=== PATIENT | female | born 1960 | race Two or more races ===

== ENCOUNTER 2022-08-04 22:04 | Inpatient (IN) | payer OTHER ==
[~2022-08-04] VITALS: Ht 160 cm; Wt 66.7 kg
--- NOTE | 2022-08-04 22:26 | NUR ---
PTE ALERTA Y ORIENTADA X3 REFIERE TENER DOLOR ABDOMINAL EN PARTE BAJA DEL ABDOMEN QUE EMPEZO ESTA MANANA Y SE A INTENCIFICADO JAMAL EL CHAPIN.
--- NOTE | 2022-08-04 23:07 | NUR ---
SE EDUCA A PTE SOBRE TX MEDICO ESTA REFIERE ENTENDER. SE ARIANNA MUESTRAS DE LABORATORIO UTILIZANDO MEDIDAS ASEPTICAS. SE COLOCA H/L A PTE Y SE NOTIFICA ESTUDIO DE CT PENDIENTE A REALIZAR.
--- NOTE | 2022-08-05 07:07 | NUR ---
SE RECIBE PTE ALERTA Y ORIENTADA EN VERITO BAJA CON BARANDAS ELEVADAS POR SEGURIDAD. SE OBSERVA CON BUEN PATRON RESPIRATORIO. RECIBIENDO IV FLUIDS. PATENTE. AREA DE VENOPUNCION ROSA MARIA DE EDEMA Y ERITEMA.PEND CONS DR. JAQUEZ. SE MANTIENE BAJO OBSERVACION POR CAMBIOS
== END 2022-08-09 22:11 | disposition home or self-care (01) | DRG 392 ==
LOC: ER 22:04 → SEC-K 08-05 15:08 → MEDI 08-05 15:08
PROVIDERS: ADMIT Internal Medicine; ATTEND Internal Medicine
PROC: BW21YZZ Computerized Tomography (CT Scan) of Abdomen and Pelvis using Other Contrast (ICD-10-PCS; principal; 2022-08-08)
DX: K57.20 Diverticulitis of large intestine with perforation and abscess without bleeding (principal); K52.89 Other specified noninfective gastroenteritis and colitis; K66.8 Other specified disorders of peritoneum; Z20.822 Contact with and (suspected) exposure to COVID-19
CPT/HCPCS: 74175

== ENCOUNTER 2023-04-13 17:48 | Inpatient (IN) | payer OTHER ==
[~2023-04-13] VITALS: Ht 160 cm; Wt 57.6 kg
== END 2023-05-01 20:31 | disposition home or self-care (01) | DRG 330 ==
LOC: ER 17:48 → MEDI 04-14 20:46 → SURG 04-24 19:15
PROVIDERS: Colon & Rectal Surgery; Emergency Medicine; Student in an Organized Health Care Education/Training Program; Surgery; ADMIT Specialist; ATTEND Specialist
PROC: BW21YZZ Computerized Tomography (CT Scan) of Abdomen and Pelvis using Other Contrast (ICD-10-PCS; 2023-04-13)
PROC: 0W9F3ZZ Drainage of Abdominal Wall, Percutaneous Approach (ICD-10-PCS; 2023-04-15)
PROC: 02HV33Z Insertion of Infusion Device into Superior Vena Cava, Percutaneous Approach (ICD-10-PCS; 2023-04-16)
PROC: 3E0436Z Introduction of Nutritional Substance into Central Vein, Percutaneous Approach (ICD-10-PCS; 2023-04-16)
PROC: 30233N1 Transfusion of Nonautologous Red Blood Cells into Peripheral Vein, Percutaneous Approach (ICD-10-PCS; 2023-04-16)
PROC: 0DJD8ZZ Inspection of Lower Intestinal Tract, Via Natural or Artificial Opening Endoscopic (ICD-10-PCS; 2023-04-18)
PROC: 0D1L4Z4 Bypass Transverse Colon to Cutaneous, Percutaneous Endoscopic Approach (ICD-10-PCS; principal; 2023-04-24 11:30)
DX: N82.4 Other female intestinal-genital tract fistulae (principal); E46 Unspecified protein-calorie malnutrition; K57.20 Diverticulitis of large intestine with perforation and abscess without bleeding; L02.211 Cutaneous abscess of abdominal wall; K63.2 Fistula of intestine; K60.3 Anal fistula; Z68.22 Body mass index [BMI] 22.0-22.9, adult; D53.9 Nutritional anemia, unspecified; K66.0 Peritoneal adhesions (postprocedural) (postinfection); R53.1 Weakness; R68.89 Other general symptoms and signs; Z74.09 Other reduced mobility

== ENCOUNTER 2023-10-23 09:30 | Inpatient (IN) | payer OTHER ==
[~2023-10-23] VITALS: Ht 160 cm; Wt 54.4 kg
[2023-10-30] MEDS ORDERED: LIDOCAINE HCL 1%/Epi 20ML VIAL IJ ONE (12:44)
[2023-10-30] MEDS ORDERED: CEFTRIAXONE SODIUM 2,000 MG VIAL ONE (12:44)
[2023-10-30] MEDS ORDERED: METRONIDAZOLE/SODIUM CHLORIDE 500 MG/100 ML PIGGYBACK IV ONE ×3 (12:44→21:55)
[2023-10-30] MEDS ORDERED: LIDOCAINE HCL/EPINEPHRINE 10MG/ML 1% 50ML IJ ONE ×2 (13:11→14:30)
[2023-10-30] MEDS ORDERED: CHLORHEXIDINE GLUCONATE 120 ML BOTTLE TOP ONE ×2 (13:11→14:30)
[2023-10-30] MEDS ORDERED: POVIDONE-IODINE 118 ML BOTT TOP ONE ×2 (13:22→14:30)
[2023-10-30] MEDS ORDERED: BUPIVACAINE HCL/PF 0.5% 30ML ML ONE (13:53)
[2023-10-30] MEDS ORDERED: CEFTRIAXONE SODIUM 2,000 MG VIAL IV ONE (14:30)
[2023-10-30] MEDS ORDERED: BUPIVACAINE HCL/PF 0.25% 30ML VIAL InF ONE (14:30)
[2023-10-30] MEDS ORDERED: DEXTROSE 50 % IN WATER 0.5 G/ML DISP.SYRIN IV PRN (16:30)
[2023-10-30] MEDS ORDERED: 0.9 % SODIUM CHLORIDE 1,000 ML IV SCH (16:30)
[2023-10-30] MEDS ORDERED: MORPHINE SULFATE 4 MG/ML CARTRIDGE IV PRN (16:30)
[2023-10-30] MEDS ORDERED: ONDANSETRON HCL 2 MG/ML VIAL IV PRN (16:30)
[2023-10-30] MEDS ORDERED: OxyCODONE HCL 5 MG TABLET (ROXICODONE) PO PRN (16:30)
[2023-10-30] MEDS ORDERED: VISTASEAL DUAL APPICATOR 1 EACH APPL TOP ONE ×2 (16:51→17:45)
[2023-10-30] MEDS ORDERED: METRONIDAZOLE/SODIUM CHLORIDE 500 MG/100 ML PIGGYBACK IV SCH (17:00)
[2023-10-30] MEDS ORDERED: HYOSCYAMINE SULFATE 0.125 MG TAB.SUBL SL SCH (17:00)
[2023-10-30] MEDS ORDERED: GABAPENTIN 300 MG CAPSULE PO SCH (17:00)
[2023-10-30] MEDS ORDERED: THROMBIN,HU/FIBRINOGEN/CALCIUM 10 ML SYRINGE TOP ONE ×2 (17:24→17:45)
[2023-10-30] MEDS ORDERED: ACETAMINOPHEN 500 MG GEL..CAP PO SCH (20:00)
[2023-10-30] MEDS ORDERED: INSULIN LISPRO 1,000 UNIT/10 ML UNITS SUBCUTANEO SCH (21:00)
[2023-10-30] MEDS ORDERED: FAMOTIDINE/PF 20 MG/2 ML VIAL IV PUSH SCH (21:00)
[2023-10-30] MEDS ORDERED: FAMOTIDINE/PF 20 MG/2 ML VIAL ONE (21:56)
[2023-10-30] MEDS ORDERED: ONDANSETRON HCL 2 MG/ML VIAL ONE (22:02)
[2023-10-30 22:05] LABS: HEMATOCRIT 39.3 % (36.0-45.00); MEAN CELL VOLUME 89.4 fL (80.00-100.00); MEAN CORPUSCULAR HEMOGLOBIN 29.5 pg (27.00-32.0); PLATELET COUNT 334 K/uL (150-450); RED CELL DISTRIBUTION WIDTH 13.9 % (11.5-14.5)
[2023-10-30 22:22] LABS: ALBUMIN 3.3 gm/dL (3.4-5.0); CREATININE SERUM 0.57 mg/dL (0.55-1.02); GFR 106.45; MAGNESIUM 1.6 mg/dL (1.8-2.4); PHOSPHOROUS 3.5 mg/dL (2.5-4.9); POTASSIUM 4.61 mEq/L (3.5-5.1)
[2023-10-31] MEDS ORDERED: ENALAPRILAT DIHYDRATE 1.25 MG/ML VIAL IV PRN (06:00)
[2023-10-31 06:33] LABS: HEMATOCRIT 35.4 % (36.0-45.00); HEMOGLOBIN 11.7 g/dL (12.0-15.00); MEAN CELL VOLUME 89.4 fL (80.00-100.00); MEAN CORPUSCULAR HEMOGLOBIN 29.7 pg (27.00-32.0); MEAN CORPUSCULAR HGB CONC 33.2 g/dl (32.0-36.0); PLATELET COUNT 282 K/uL (150-450); RED BLOOD COUNT 3.96 M/uL (4.00-6.00); RED CELL DISTRIBUTION WIDTH 14.6 % (11.5-14.5)
[2023-10-31 06:59] LABS: ALBUMIN 2.6 gm/dL (3.4-5.0); CALCIUM 7.8 mg/dL (8.5-10.1); CREATININE SERUM 0.54 mg/dL (0.55-1.02); GFR 113.3; MAGNESIUM 1.5 mg/dL (1.8-2.4); PHOSPHOROUS 3.6 mg/dL (2.5-4.9); POTASSIUM 4.44 mEq/L (3.5-5.1)
[2023-10-31] MEDS ORDERED: MAGNESIUM SULFATE IN WATER 50 ML IV ONE (09:30)
[2023-10-31] MEDS ORDERED: ENOXAPARIN SODIUM 40 MG/0.4 ML SYRINGE SUBCUTANEO SCH (17:00)
[2023-11-01 07:41] LABS: CALCIUM 8.6 mg/dL (8.5-10.1); CREATININE SERUM 0.39 mg/dL (0.55-1.02); GFR 164.94; MAGNESIUM 2.3 mg/dL (1.8-2.4); PHOSPHOROUS 2.4 mg/dL (2.5-4.9); POTASSIUM 4.01 mEq/L (3.5-5.1)
[2023-11-01 07:54] LABS: HEMATOCRIT 34.4 % (36.0-45.00); HEMOGLOBIN 11.4 g/dL (12.0-15.00); MEAN CELL VOLUME 91.1 fL (80.00-100.00); MEAN CORPUSCULAR HEMOGLOBIN 30.2 pg (27.00-32.0); MEAN CORPUSCULAR HGB CONC 33.2 g/dl (32.0-36.0); PLATELET COUNT 297 K/uL (150-450); RED BLOOD COUNT 3.77 M/uL (4.00-6.00); RED CELL DISTRIBUTION WIDTH 14.5 % (11.5-14.5)
[2023-11-01] MEDS ORDERED: ENOXAPARIN SODIUM 40 MG/0.4 ML SYRINGE SUBCUTANEO SCH (09:00)
[2023-11-01] MEDS ORDERED: POTASSIUM PHOS,M-BASIC-D-BASIC 18 MM in 0.9 % SODIUM CHLORIDE 250 ML IV ONE (13:30)
[2023-11-01] MEDS ORDERED: MORPHINE SULFATE 4 MG/ML CARTRIDGE IV PRN (18:00)
[2023-11-03 06:42] LABS: HEMATOCRIT 32.5 % (36.0-45.00); HEMOGLOBIN 10.8 g/dL (12.0-15.00); MEAN CELL VOLUME 90.1 fL (80.00-100.00); MEAN CORPUSCULAR HEMOGLOBIN 29.9 pg (27.00-32.0); MEAN CORPUSCULAR HGB CONC 33.2 g/dl (32.0-36.0); PLATELET COUNT 297 K/uL (150-450); RED BLOOD COUNT 3.61 M/uL (4.00-6.00); RED CELL DISTRIBUTION WIDTH 14.7 % (11.5-14.5)
[2023-11-03 07:06] LABS: BILIRUBIN TOTAL 0.31 mg/dL (0.3-1.2); GFR 241.77; GLOBULINA 2.5 G/DL (2.4-3.5); POTASSIUM 4.01 mEq/L (3.5-5.1); TOTAL PROTEIN 4.5 gm/dL (6.4-8.2)
[2023-11-03 07:11] LABS: CREATININE SERUM 0.28 mg/dL (0.55-1.02)
[2023-11-03] MEDS ORDERED: INTESTINEX680 M1 PO (11:07)
[2023-11-03] MEDS ORDERED: HYOSCYAMINE0.125 M1 SL (11:08)
== END 2023-11-03 12:07 | disposition home or self-care (01) | DRG 330 ==
LOC: SURH 10-30 07:00 → O/R 10-30 10:09 → SURH 10-30 18:49
PROVIDERS: Internal Medicine; Internal Medicine Geriatric Medicine; Obstetrics & Gynecology Gynecologic Oncology; Urology; ADMIT Surgery; ATTEND Surgery
PROC: 0UQ Female Reproductive System, Repair (ICD-10-PCS; 2023-10-30)
PROC: 0UQG4ZZ Repair Vagina, Percutaneous Endoscopic Approach (ICD-10-PCS; 2023-10-30)
PROC: 0DJD8ZZ Inspection of Lower Intestinal Tract, Via Natural or Artificial Opening Endoscopic (ICD-10-PCS; 2023-10-30)
PROC: 0DQP4ZZ Repair Rectum, Percutaneous Endoscopic Approach (ICD-10-PCS; 2023-10-30)
PROC: 0UT94ZZ Resection of Uterus, Percutaneous Endoscopic Approach (ICD-10-PCS; 2023-10-30)
PROC: 0UT74ZZ Resection of Bilateral Fallopian Tubes, Percutaneous Endoscopic Approach (ICD-10-PCS; 2023-10-30)
PROC: 0UT24ZZ Resection of Bilateral Ovaries, Percutaneous Endoscopic Approach (ICD-10-PCS; 2023-10-30)
PROC: 0TN74ZZ Release Left Ureter, Percutaneous Endoscopic Approach (ICD-10-PCS; 2023-10-30)
PROC: 0TN64ZZ Release Right Ureter, Percutaneous Endoscopic Approach (ICD-10-PCS; 2023-10-30)
PROC: 0T788DZ Dilation of Bilateral Ureters with Intraluminal Device, Via Natural or Artificial Opening Endoscopic (ICD-10-PCS; 2023-10-30)
PROC: 0TQB4ZZ Repair Bladder, Percutaneous Endoscopic Approach (ICD-10-PCS; 2023-10-30)
PROC: 0DQ84ZZ Repair Small Intestine, Percutaneous Endoscopic Approach (ICD-10-PCS; principal; 2023-10-30 22:30)
PROC: 0DBP4ZZ Excision of Rectum, Percutaneous Endoscopic Approach (ICD-10-PCS; 2023-10-30 22:30)
PROC: 0DTN4ZZ Resection of Sigmoid Colon, Percutaneous Endoscopic Approach (ICD-10-PCS; 2023-10-30 22:30)
DX: K57.20 Diverticulitis of large intestine with perforation and abscess without bleeding (principal); K91.71 Accidental puncture and laceration of a digestive system organ or structure during a digestive system procedure; N99.72 Accidental puncture and laceration of a genitourinary system organ or structure during other procedure; N32.1 Vesicointestinal fistula; D25.1 Intramural leiomyoma of uterus; D25.2 Subserosal leiomyoma of uterus; N80.03 Adenomyosis of the uterus; N72 Inflammatory disease of cervix uteri; N83.311 Acquired atrophy of right ovary; N83.12 Corpus luteum cyst of left ovary; Z20.822 Contact with and (suspected) exposure to COVID-19

== ENCOUNTER 2024-03-16 11:15 | Inpatient (IN) | payer OTHER ==
[~2024-03-16] VITALS: Ht 160 cm; Wt 58.1 kg
[~2024-03-16 11:15] MED LIST: HYOSCYAMINE0.125 M1 SL; INTESTINEX680 M1 PO
[2024-03-16] MEDS ORDERED: FIORECET (12:56)
[2024-03-16] MEDS ORDERED: MOBIC7.5 MG PO (12:56)
[2024-03-22] MEDS ORDERED: CEFTRIAXONE SODIUM 2,000 MG VIAL ONE (13:49)
[2024-03-22] MEDS ORDERED: METRONIDAZOLE/SODIUM CHLORIDE 500 MG/100 ML PIGGYBACK IV ONE ×2 (13:50→16:48)
[2024-03-22] MEDS ORDERED: ONDANSETRON HCL 2 MG/ML VIAL IV PRN (15:30)
[2024-03-22] MEDS ORDERED: MORPHINE SULFATE 4 MG/ML CARTRIDGE IV PRN (15:30)
[2024-03-22] MEDS ORDERED: DEXTROSE 50 % IN WATER 0.5 G/ML DISP.SYRIN IV PRN (15:30)
[2024-03-22] MEDS ORDERED: 0.9 % SODIUM CHLORIDE 1,000 ML IV SCH (15:30)
[2024-03-22] MEDS ORDERED: OxyCODONE HCL 5 MG TABLET (ROXICODONE) PO PRN (15:30)
[2024-03-22] MEDS ORDERED: BUTALB-ACETAMI1 EAC2 (15:45)
[2024-03-22] MEDS ORDERED: MORPHINE SULFATE 4 MG/ML VIAL IV ONE ×2 (16:20→16:50)
[2024-03-22] MEDS ORDERED: POLYETHYLENE GLYCOL 3350 17 GM BLIST.PACK PO SCH (17:00)
[2024-03-22] MEDS ORDERED: GABAPENTIN 300 MG CAPSULE PO SCH (17:00)
[2024-03-22] MEDS ORDERED: METRONIDAZOLE/SODIUM CHLORIDE 500 MG/100 ML PIGGYBACK IV SCH (17:00)
[2024-03-22] MEDS ORDERED: HYOSCYAMINE SULFATE 0.125 MG TAB.SUBL SL SCH (17:00)
[2024-03-22 19:44] LABS: ALBUMIN 3.3 gm/dL (3.4-5.0); CALCIUM 9.3 mg/dL (8.5-10.1); CREATININE SERUM 0.62 mg/dL (0.55-1.02); GFR 96.31; MAGNESIUM 1.8 mg/dL (1.8-2.4); PHOSPHOROUS 3.3 mg/dL (2.5-4.9); POTASSIUM 5.14 mEq/L (3.5-5.1)
[2024-03-22 19:52] LABS: HEMATOCRIT 39.5 % (36.0-45.00); HEMOGLOBIN 13.2 g/dL (12.0-15.00); MEAN CELL VOLUME 90.2 fL (80.00-100.00); MEAN CORPUSCULAR HEMOGLOBIN 30.2 pg (27.00-32.0); MEAN CORPUSCULAR HGB CONC 33.4 g/dl (32.0-36.0); PLATELET COUNT 277 K/uL (150-450); RED BLOOD COUNT 4.38 M/uL (4.00-6.00)
[2024-03-22] MEDS ORDERED: ACETAMINOPHEN 500 MG GEL..CAP PO SCH (20:00)
[2024-03-22] MEDS ORDERED: FAMOTIDINE/PF 20 MG/2 ML VIAL IV PUSH SCH (21:00)
[2024-03-23 06:28] LABS: HEMATOCRIT 37.9 % (36.0-45.00); HEMOGLOBIN 12.5 g/dL (12.0-15.00); MEAN CELL VOLUME 90.5 fL (80.00-100.00); MEAN CORPUSCULAR HEMOGLOBIN 29.8 pg (27.00-32.0); MEAN CORPUSCULAR HGB CONC 32.9 g/dl (32.0-36.0); PLATELET COUNT 217 K/uL (150-450); RED BLOOD COUNT 4.19 M/uL (4.00-6.00); RED CELL DISTRIBUTION WIDTH 13.9 % (11.5-14.5)
[2024-03-23 06:59] LABS: CALCIUM 8.6 mg/dL (8.5-10.1); CREATININE SERUM 0.53 mg/dL (0.55-1.02); GFR 115.41; PHOSPHOROUS 4.3 mg/dL (2.5-4.9); POTASSIUM 4.86 mEq/L (3.5-5.1)
[2024-03-23] MEDS ORDERED: ENOXAPARIN SODIUM 40 MG/0.4 ML SYRINGE SUBCUTANEO SCH (17:00)
[2024-03-24 06:30] LABS: HEMATOCRIT 34.8 % (36.0-45.00); HEMOGLOBIN 11.4 g/dL (12.0-15.00); MEAN CELL VOLUME 89.2 fL (80.00-100.00); MEAN CORPUSCULAR HEMOGLOBIN 29.3 pg (27.00-32.0); MEAN CORPUSCULAR HGB CONC 32.8 g/dl (32.0-36.0); PLATELET COUNT 241 K/uL (150-450); RED CELL DISTRIBUTION WIDTH 14.1 % (11.5-14.5)
[2024-03-24 07:22] LABS: CALCIUM 8.5 mg/dL (8.5-10.1); CREATININE SERUM 0.4 mg/dL (0.55-1.02); GFR 159.7; MAGNESIUM 1.9 mg/dL (1.8-2.4); PHOSPHOROUS 2.2 mg/dL (2.5-4.9); POTASSIUM 4.78 mEq/L (3.5-5.1)
[2024-03-24] MEDS ORDERED: POTASSIUM PHOS,M-BASIC-D-BASIC 3 MM/ML VIAL IV ONE (08:00)
[2024-03-24] MEDS ORDERED: ENOXAPARIN SODIUM 40 MG/0.4 ML SYRINGE SUBCUTANEO SCH (09:00)
[2024-03-24] MEDS ORDERED: MORPHINE SULFATE 4 MG/ML CARTRIDGE IV PRN (19:00)
== END 2024-03-25 13:09 | disposition home or self-care (01) | DRG 330 ==
LOC: SURG 03-22 07:00 → O/R 03-22 08:57 → SURG 03-22 11:15 → O/R 03-22 14:59 → SURG 03-22 16:12
PROVIDERS: Internal Medicine Geriatric Medicine; ADMIT Surgery; ATTEND Surgery
PROC: 0DBL4ZZ Excision of Transverse Colon, Percutaneous Endoscopic Approach (ICD-10-PCS; principal; 2024-03-22 07:00)
DX: Z43.3 Encounter for attention to colostomy (principal); K57.20 Diverticulitis of large intestine with perforation and abscess without bleeding; D64.89 Other specified anemias